=== PATIENT | female | born 1995 | race Two or more races ===

== ENCOUNTER 2021-05-16 06:45 | Inpatient (IN) | payer BC, OTHER ==
[2021-05-16 08:46] VITALS: BMI 34.5
[2021-05-16] MEDS ORDERED: PROMETHAZINE HCL 25 MG/1 ML VIAL IVPUSH ONE (08:52)
[2021-05-16] MEDS ORDERED: BUTORPHANOL TARTRATE 1 MG/ML VIAL IVPB ONE (08:52)
[2021-05-16] MEDS: OXYTOCIN 30 UNITS in 0.9% NS 30 UNIT/500 ML INFUS.BAG IVPB SCH (08:55)
[2021-05-16] MEDS ORDERED: AMPICILLIN - 2 GM in SODIUM CHLORIDE 100 ML IVPB ONE (09:00)
[2021-05-16] MEDS ORDERED: DEXTROSE 5%-LACTATED RINGERS 1,000 ML IV SCH (09:00)
[2021-05-16] MEDS ORDERED: AMPICILLIN SODIUM 2 GM VIAL ONE (09:04)
[2021-05-16 09:21] LABS: BASO % 0.3 % (0-2.0); EOS % 1.6 % (0-4.5); HEMATOCRIT 35.2 % (32.4-45.2); LYMPH % 15.2 % (8-40); MEAN CELL VOLUME 88.2 fl (80-96); MEAN PLT VOLUME 9.7 fl (7.5-11.1); NEUT % 75.9 % (42.8-82.8); PLATELET COUNT 173 10^3/uL (134-434); RBC 3.98 M/mm3 (3.60-5.2); WHITE BLOOD COUNT 10.6 K/mm3 (4.0-10.0)
[2021-05-16 09:40] LABS: ALBUMIN 2.6 g/dl (3.4-5.0); CALCIUM 8.6 mg/dL (8.5-10.1)
[2021-05-16 09:41] LABS: URIC ACID 4.8 mg/dL (2.6-7.2)
[2021-05-16 09:42] LABS: CREATININE 0.6 mg/dL (0.55-1.3)
[2021-05-16 09:44] LABS: BILIRUBIN,TOTAL 0.2 mg/dL (0.2-1); TOT PROT 6.5 g/dl (6.4-8.2)
[2021-05-16 09:45] LABS: INR 1.01 (0.83-1.09); PROTHROMBIN TIME (PATIENT) 12.2 SEC (9.7-13.0)
[2021-05-16 09:47] LABS: ACTIVATED PTT 28.1 SECONDS (25.2-36.5)
[2021-05-16 11:10] LABS: EPI CELLS 13 /uL (0-25.1); HYALINE CASTS 1 /uL (0-3.1); URINE APPEARANCE CLEAR; URINE BACTERIA 92 /uL (0-1359); URINE BILIRUBIN NEGATIVE (NEGATIVE); URINE COLOR YELLOW; URINE GLUCOSE (UA) NEGATIVE (NEGATIVE); URINE KETONE TRACE (NEGATIVE); URINE LEUK ESTERASE TRACE (NEGATIVE); URINE NITRITE NEGATIVE (NEGATIVE); URINE PROTEIN NEGATIVE (NEGATIVE); URINE RBC 45 /uL (0-23.9); URINE UROBILINOGEN 0.2 mg/dL (0.2-1.0); URINE WBC 50 /uL (0-25.8)
[2021-05-16 11:22] LABS: HIV INTERPRETATION NEGATIVE (NEGATIVE)
[2021-05-16] MEDS ORDERED: AMPICILLIN SODIUM 1 GM VIAL ONE ×3 (12:57→20:43)
[2021-05-16] MEDS: AMPICILLIN - 1 GM in SODIUM CHLORIDE 100 ML IVPB SCH ×3 (13:00→20:57)
[2021-05-16] MEDS: ELECTROLYTE-148 SOLN 1,000 ML IV SCH (22:20)
[2021-05-16] MEDS ORDERED: OXYTOCIN 20 UNITS in 0.9% NS 20 UNIT/1,000 ML INFUS.BAG IV ONE (22:23)
[2021-05-16] MEDS ORDERED: morphine SULFATE/PF 0.5 MG/ML (2cc Syringe - QUVA) ONE (22:24)
[2021-05-16] MEDS ORDERED: CITRIC ACID/SODIUM CITRATE 30 ML UNIT-DOSE CUP PO ONE (22:26)
[2021-05-16] MEDS ORDERED: morphine SULFATE/PF 0.5 MG/ML (2cc Syringe - QUVA) EP ONE (22:36)
[2021-05-16] MEDS ORDERED: ONDANSETRON 4 MG/2 ML VIAL IVPUSH PRN (22:36)
[2021-05-17] MEDS: OXYTOCIN 20 UNITS in 0.9% NS 20 UNIT/1,000 ML INFUS.BAG IV SCH (00:30)
[2021-05-17] MEDS ORDERED: IBUPROFEN 600 MG TABLET (FP) PO PRN (00:50)
[2021-05-17] MEDS ORDERED: oxyCODONE HCL 5 MG TABLET PO PRN ×2 (00:50)
[2021-05-17] MEDS ORDERED: METHYLERGONOVINE MALEATE 0.2 MG/1 ML AMP IM PRN (00:50)
[2021-05-17] MEDS ORDERED: IBUPROFEN 800 MG/8 ML IJ IVPB PRN (00:50)
[2021-05-17] MEDS ORDERED: ACETAMINOPHEN 325 MG TABLET (FP) PO PRN (00:50)
[2021-05-17] MEDS: PRENATAL VITAMINS W/ FOLIC ACID TABLET (FP) PO SCH (10:01)
[2021-05-17] MEDS: LABETALOL HCL 200 MG TABLET (FP) PO SCH ×2 (12:23→22:12)
[2021-05-17] MEDS: ACETAMINOPHEN 325 MG TABLET (FP) PO PRN (22:11)
[2021-05-17] MEDS: SIMETHICONE 80 MG TAB.CHEW (FP) PO PRN (22:11)
[2021-05-17] MEDS: IBUPROFEN 600 MG TABLET (FP) PO PRN (22:11)
[2021-05-17] MEDS: SENNOSIDES/DOCUSATE COMBO (SENNA PLUS) TABLET (UD) PO PRN (22:11)
[2021-05-18] MEDS ORDERED: BISACODYL 10 MG SUPP.RECT RC PRN (00:51)
[2021-05-18] MEDS: SIMETHICONE 80 MG TAB.CHEW (FP) PO PRN ×3 (06:37→19:42)
[2021-05-18] MEDS: ACETAMINOPHEN 325 MG TABLET (FP) PO PRN ×3 (06:38→19:42)
[2021-05-18] MEDS: IBUPROFEN 600 MG TABLET (FP) PO PRN ×3 (06:39→19:42)
[2021-05-18 08:56] LABS: BASO % 0.2 % (0-2.0); HEMATOCRIT 31.9 % (32.4-45.2); HEMOGLOBIN 10.9 GM/dL (10.7-15.3); LYMPH % 13.3 % (8-40); MCH 29.9 pg (25.7-33.7); MCHC 34.1 g/dl (32.0-36.0); MEAN CELL VOLUME 87.7 fl (80-96); MEAN PLT VOLUME 9.2 fl (7.5-11.1); MONO % 4.7 % (3.8-10.2); NEUT % 80.8 % (42.8-82.8); PLATELET COUNT 149 10^3/uL (134-434); RBC 3.64 M/mm3 (3.60-5.2); WHITE BLOOD COUNT 10.4 K/mm3 (4.0-10.0)
[2021-05-18] MEDS: PRENATAL VITAMINS W/ FOLIC ACID TABLET (FP) PO SCH (11:06)
[2021-05-18] MEDS: LABETALOL HCL 200 MG TABLET (FP) PO SCH ×2 (11:09→21:36)
[2021-05-18] MEDS: OXYTOCIN 30 UNITS in 0.9% NS 30 UNIT/500 ML INFUS.BAG IVPB SCH ×2 (21:15→21:16)
[2021-05-18] MEDS: ELECTROLYTE-148 SOLN 1,000 ML IV SCH (21:16)
[2021-05-18] MEDS: AMPICILLIN - 1 GM in SODIUM CHLORIDE 100 ML IVPB SCH (21:17)
[2021-05-18] MEDS: OXYTOCIN 20 UNITS in 0.9% NS 20 UNIT/1,000 ML INFUS.BAG IV SCH (21:17)
[2021-05-18] MEDS: SENNOSIDES/DOCUSATE COMBO (SENNA PLUS) TABLET (UD) PO PRN (21:40)
[2021-05-19] MEDS: SIMETHICONE 80 MG TAB.CHEW (FP) PO PRN ×2 (01:25→07:21)
[2021-05-19] MEDS: ACETAMINOPHEN 325 MG TABLET (FP) PO PRN ×4 (01:25→20:42)
[2021-05-19] MEDS: IBUPROFEN 600 MG TABLET (FP) PO PRN ×4 (01:26→20:42)
[2021-05-19] MEDS: PRENATAL VITAMINS W/ FOLIC ACID TABLET (FP) PO SCH (10:58)
[2021-05-19] MEDS: LABETALOL HCL 200 MG TABLET (FP) PO SCH ×2 (12:03→21:40)
[2021-05-20] MEDS: IBUPROFEN 600 MG TABLET (FP) PO PRN ×3 (02:34→16:53)
[2021-05-20] MEDS: ACETAMINOPHEN 325 MG TABLET (FP) PO PRN ×3 (02:34→16:54)
[2021-05-20] MEDS: SIMETHICONE 80 MG TAB.CHEW (FP) PO PRN ×3 (02:34→16:55)
[2021-05-20] MEDS: SENNOSIDES/DOCUSATE COMBO (SENNA PLUS) TABLET (UD) PO PRN (02:36)
[2021-05-20] MEDS: PRENATAL VITAMINS W/ FOLIC ACID TABLET (FP) PO SCH (09:30)
[2021-05-20 10:35] VITALS: BP 125/84; PULSE 80; TEMP 98
[2021-05-20] MEDS: LABETALOL HCL 200 MG TABLET (FP) PO SCH (12:38)
== END 2021-05-20 21:00 | disposition home or self-care (01) | DRG 787 ==
LOC: JLDR 06:45 → J3W 05-17 01:52
PROVIDERS: ADMIT Obstetrics & Gynecology; ATTEND Obstetrics & Gynecology
PROC: 10D00Z1 Extraction of Products of Conception, Low, Open Approach (ICD-10-PCS; principal; 2021-05-16)
DX: O76 Abnormality in fetal heart rate and rhythm complicating labor and delivery (principal); O14.93 Unspecified pre-eclampsia, third trimester; O69.1XX0 Labor and delivery complicated by cord around neck, with compression, not applicable or unspecified; Z3A.37 37 weeks gestation of pregnancy; Z37.0 Single live birth
CPT/HCPCS: 36415; 80053; 81003; 82977; 83010; 84550; 85025; 85032; 85045; 85610; 85730; 86780; 86850; 86900; 86901; 87389; 88307-TC